=== PATIENT | female | born 1950 | race Caucasian/White ===

== ENCOUNTER 2019-07-12 11:45 | Outpatient (CLI) | payer MEDICARE, OTHER, SELFPAY ==
[2019-07-12 12:08] LABS: Basophils % 0.8 %; Eosinophils # 0.1 10^3/uL (0.0-0.8); Eosinophils % 1.5 %; Hematocrit 38.9 % (37.0-47.0); Hemoglobin 12.3 g/dL (11.5-15.3); Lymphocytes # 1.2 10^3/uL (0.8-4.8); Lymphocytes % 21.9 %; Mean Corpuscular HGB Conc 31.6 g/dL (30.0-36.0); Mean Corpuscular Hemoglobin 30.4 pg (28.0-34.0); Mean Corpuscular Volume 96.3 fL (81-99); Mean Platelet Volume 10.4 fL (7.4-10.4); Monocytes # 0.4 10^3/uL (0.2-0.9); Monocytes % 6.9 %; Neutrophils # 3.6 10^3/uL (1.8-7.7); Neutrophils % 68.7 %; Nucleated Red Blood Cells % 0 %; Platelet Count 206 10^3/cmm (130-400); Red Blood Count 4.04 10^6/uL (4.1-5.3); Red Cell Distribution Width 12.7 % (12.1-15.1); White Blood Count 5.2 10^3/uL (4.0-10.0)
[2019-07-12 12:38] LABS: Alanine Aminotransferase 23 U/L (0-33); Albumin Level 4.6 g/dL (3.5-5.2); Alkaline Phosphatase 53 IU/L (35-105); Anion Gap 13.2 (5-19); Aspartate Amino Transferase 24 U/L (0-32); Blood Urea Nitrogen 9 mg/dL (8-23); Calcium 9.9 mg/Dl (8.8-10.2); Carbon Dioxide 29 mmol/L (22-29); Chloride 104 mmol/L (98-107); Glucose 105 mg/dL (74-106); Potassium 4.2 mmol/L (3.5-5.1); Sodium 142 mmol/L (136-145); Total Bilirubin 0.6 mg/dL (0.15-1.2); Total Protein 6.6 g/dL (6.6-8.7)
[2019-07-12 12:57] LABS: 25 Hydroxy Vitamin D 40 ng/mL (30-100)
[2019-07-12] MEDS: denosumab 60 mg SDV SUBCUT (14:20)
--- NOTE | 2019-07-16 11:07 | ONC FU_ITS ---
Dr. Pemberton Patient Follow-Up Note Patient: Sarahi Martin Unit #: [id number]: 1950 Dicatated By: Hipolito Pemberton M.D.Date of Visit:Jul 12, 2019 Onc Med Follow-up/Prog Note Chief Complaint: Breast cancer. History of Present Illness: This is a 69 year-old woman with grade 1 invasive carcinoma of the right breast, stage IA (T1c, N0, M0), ER positive/AL negative and HER-2/chayo negative. This patient has been in good general health. She had presented with abnormal screening mammogram on 03/10/2018. It was BI-RADS 0 with nipple retraction and inversion of the right breast which was new compared to prior study from 2013. Also noted was architectural distortion with some tethering noted deep to the areola. Further evaluation with additional mammogram views and right breast ultrasound was BI-RADS 5, highly suggestive of malignancy. The mammographic findings were similar. The ultrasound showed a hypoechoic lesion at the 10:00 position measuring 0.7 x 0.8 x 0.5 cm. The appearance was highly suspicious for malignancy. Ultrasound directed needle biopsy of the right breast on 04/07/2018 showed nuclear grade 1 ductal carcinoma in situ with a microscopic focus of infiltrating ductal carcinoma measuring 0.2 cm. The breasts prognostic profile showed ER positive at 90% with AL negative at less than 1%. The tumor was negative for overexpression of HER-2/chayo, 1+ by IHC and amplification ratio by FISH of 1.1 with 2.1 HER-2 copies/cell. She was referred to Dr. Thompson in [place]. She had further evaluation with breast MRI on 04/28/2018. It showed findings suggestive of at least 2 areas of invasive carcinoma spanning at least 4.5 cm. Given those findings, was opted to proceed with right total mastectomy and axillary sentinel lymph node biopsy on 05/05/2018. Pathology showed a mass located centrally within the breast measuring 1.7 x 1.2 x 0.8 cm. An additional mass at approximately 2:00 measured 0.7 x 0.7 x 0.5 cm. Histology was that of invasive mammary carcinoma with ductal and lobular features, grade 1. There were 2 foci of involvement, the largest area of invasive carcinoma measuring 12 x 11 x 8 mm. The smaller lesion measured 9 x 8 x 6 mm. DCIS was present in the specimen. There was no involvement in 1 axillary sentinel lymph node. The breast prognostic profile again showed ER positive at 100% with AL negative at 0%. HER-2/chayo was negative, 1+ by IHC. The Ki-67 was favorable at 10%. I had seen her initially on 06/01/2018. Subsequent to that visit she had further evaluation with Oncotype DX. It showed a recurrence score of 10, low risk, with an estimated risk for distant recurrence at 9 years of 3% with adjuvant hormonal therapy. The absolute benefit with addition of chemotherapy was less than 1%. As such, adjuvant chemotherapy was not recommended. Adjuvant hormonal therapy with anastrozole 1 mg daily began in June 2018. At that time she also started treatment with Prolia for bone health, as her baseline dexa scan showed osteoporosis with T score -2.6 in the lumbar spine. Her medical history is otherwise significant for GERD. She has no other ongoing medical illnesses. She is a nonsmoker. Her family history is significant in that her mother of ovarian cancer. She also had been treated for colon cancer. She is seen for a followup visit. She has been feeling pretty good generally. She says her energy has been pretty low, but that she attributes to the fact that they currently in the process of moving. She still has normal activity. ECOG score is 0. Her appetite is good. She has not had fever. She does have some hot flashes, but not as much. She has no shortness of breath, cough, or chest pain. She has no GI/ complaints other than some acid reflux, which she manages adequately with Pepcid as needed. She was having bad joint pain, but that improved when she stopped taking Protonix. She does have some numbness/tingling in her feet. Medications: Anastrozole 1 Tablet (of 1 mg) Oral daily, Calcium + D3 1 Tablet (of 600-800 mg - Units) Oral b.i.d., Multivitamin Adult 1 Tablet Oral daily, Pepcid 1 Tablet (of 20 mg) Oral PRN, PreserVision AREDS 2 1 Capsule Oral daily, Vitamin D2 1 Tablet (of 73057 Units) Oral q 30 days Allergies: No Known Allergies. Review of Systems: Constitutional - Her energy is pretty good. She has normal activity. Her appetite is good and her weight is down a few pounds. No fever or chills. Her hot flashes and sweating have gotten much better. ECOG score is 0, ENMT - No sinus congestion/drainage. No mouth sores. No sore throat or difficulty swallowing, Hematologic/Lymphatic - No abnormal bruising or bleeding, Respiratory - No shortness of breath. No cough. No pleuritic pain or hemoptysis, Cardiovascular - No angina pain. No palpitations, Gastrointestinal - No nausea or vomiting. She has occasional heartburn. No diarrhea or constipation. No blood in the stool or black stools, Genitourinary (F) - No dysuria or hematuria. No urinary frequency. No urgency or incontinence, Musculoskeletal - No joint or bone pain, Integumentary - No skin complications, Neurologic - No headache or dizziness. She has numbness and tingling in her feet, Psychiatric - No anxiety or depression. No insomnia. Vital Signs: Performed on Jul 12, 2019 13:51 Height - 66.00 in Weight - 137.8 lbs (LOW) BSA - 1.71 sq.m BMI - 22.24 Temperature - 98.7 F Pulse - 73 /min Respiration - 18 /min BP - 125/64 mm(hg) O2 Sat - 100 % Pain - 0 Physical Examination: Constitutional - She looks good generally, Eyes - Sclerae nonicteric. Conjunctivae clear, ENMT - No lesions noted in the oral cavity, Hematologic/Lymphatic - No cervical, clavicular, or axillary adenopathy, Respiratory - Lungs are clear with good air movement bilaterally, Cardiovascular - Heart rhythm is regular. There is no murmur, gallop, or rub noted, Breasts - There are no lesions noted in the right chest wall . The left breast shows no mass. There is no axillary adenopathy, Abdomen - Soft. Liver and spleen are not enlarged. There is no abdominal mass or ascites noted and there is no inguinal adenopathy, Extremities - No edema, Neurologic - No focal neurologic deficits noted. Lab/Imaging: Test performed on Jul 12, 2019 11:55 Glucose 105 mg/dL Vitamin D (25-Hydroxy) 40 ng/mL BUN 9 mg/dL Creatinine 0.5 mg/dL Cr Clearance (Est) 101.83 mL/min Sodium 142 mmol/L Potassium 4.2 mmol/L Chloride 104 mmol/L CO2 29 mmol/L Calcium 9.9 mg/dL Protein, Total 6.6 g/dL Albumin 4.6 g/dL Bilirubin, Total 0.6 mg/dL Alkaline Phosphatase 53 IU/L AST (SGOT) 24 IU/L ALT (SGPT) 23 IU/L WBC 5.2 10^9/L RBC 4.04 10^12/L HGB 12.3 g/dL HCT 38.9 % MCV 96.3 fl MCH 30.4 pg MCHC 31.6 g/dL RDW 12.7 % Platelet Count 206 10^9/L MPV 10.4 fL Neutrophils (Gran) 3.6 10^9/L Lymphocytes 1.2 10^9/L Monocytes 0.4 10^9/L Eosinophils 0.1 10^9/L Basophils 0.0 10^9/L Manual Lymphocytes 21.9 % Manual Monocytes 6.9 % Manual Eosinophils 1.5 % Manual Basophils 0.8 % NRBCs 0.0 /100 WBC Impression: 1. Patient with multifocal grade 1 invasive carcinoma of the right breast, stage IA (T1c, N0, M0), ER positive/AL negative and HER-2/chayo negative. 2. She underwent ultrasound directed needle biopsy of the right breast on 04/07/2018 followed by right total mastectomy and axillary sentinel lymph node biopsy on 05/05/2018. 3. Her Oncotype DX score was 10, low risk, with estimated risk for a distance recurrence at 9 years of 3% with adjuvant hormonal therapy. 4. Postoperatively she was having neuropathic pain in the right chest wall, but that has improved with Lyrica. 5. She had evidence of osteoporosis on her baseline DEXA scan, T score -2.6 in the lumbar spine, -2.1 in the left hip, and -1.5 in the right hip. 6. She has GERD symptoms, adequately managed with medication. 7. There is a history of ovarian cancer involving a first-degree relative, which does convey some risk of hereditary breast cancer/ovarian cancer syndrome. Adjuvant hormonal therapy with anastrozole 1 mg daily began in June 2018. She also started treatment with Prolia for the osteopororsis. As of her follow-up visit in September 2018 she was tolerating the anastrozole well. I had seen her again in December, and at that point she had developed significant joint pain. I did have her stop the anastrozole. Ultimately, the pain improved when she was taken off Protonix. She had subsequently restarted the anastrozole, and she seems to be tolerating it well. Thus far there has been no evidence of recurrence of the breast cancer. Plan: She continues adjuvant hormonal therapy with anastrozole 1 mg daily. She will be given Prolia 60 mg by subcutaneous injection for the osteoporosis. She will be scheduled for a follow-up visit in 6 months. Signed By: Hipolito Pemberton M.D. <<Signature on File>>
== END 2019-07-12 11:46 | disposition home or self-care (01) ==
LOC: ONCMED 11:50
PROVIDERS: Family Provider Family Medicine; PCP Family Medicine; Visit Provider Internal Medicine Medical Oncology
DX: M81.0 Age-related osteoporosis without current pathological fracture (principal); C50.411 Malignant neoplasm of upper-outer quadrant of right female breast; K21.9 Gastro-esophageal reflux disease without esophagitis; Z17.0 Estrogen receptor positive status [ER+]; Z90.11 Acquired absence of right breast and nipple; Z79.811 Long term (current) use of aromatase inhibitors
CPT/HCPCS: 80053; 82306; 85025; 96372; 99214; J0897

== ENCOUNTER 2020-01-10 13:08 | Outpatient (CLI) | payer MEDICARE, OTHER, SELFPAY ==
[2020-01-10 14:13] LABS: Basophils % 0.7 %; Eosinophils # 0.1 10^3/uL (0.0-0.8); Eosinophils % 1.8 %; Hematocrit 37.6 % (37.0-47.0); Hemoglobin 11.4 g/dL (11.5-15.3); Lymphocytes # 1.4 10^3/uL (0.8-4.8); Lymphocytes % 32.8 %; Mean Corpuscular HGB Conc 30.3 g/dL (30.0-36.0); Mean Corpuscular Hemoglobin 29.6 pg (28.0-34.0); Mean Corpuscular Volume 97.7 fL (81-99); Mean Platelet Volume 11.1 fL (7.4-10.4); Monocytes # 0.4 10^3/uL (0.2-0.9); Monocytes % 8.9 %; Neutrophils # 2.42 10^3/uL (1.8-7.7); Neutrophils % 55.6 %; Nucleated Red Blood Cells % 0 %; Platelet Count 193 10^3/cmm (130-400); Red Blood Count 3.85 10^6/uL (4.1-5.3); Red Cell Distribution Width 12.6 % (12.1-15.1); White Blood Count 4.4 10^3/uL (4.0-10.0)
[2020-01-10 14:33] LABS: Alanine Aminotransferase 21 U/L (0-33); Albumin Level 4.5 g/dL (3.5-5.2); Alkaline Phosphatase 53 IU/L (35-105); Anion Gap 10.6 (5-19); Aspartate Amino Transferase 24 U/L (0-32); Blood Urea Nitrogen 8 mg/dL (8-23); Calcium 9.4 mg/dL (8.5-10.5); Carbon Dioxide 28 mmol/L (22-29); Chloride 106 mmol/L (98-107); Glucose 103 mg/dL (65-115); Osmolality Calculated 288 mOsm/kg (285-295); Potassium 3.6 mmol/L (3.5-5.1); Sodium 141 mmol/L (136-145); Total Bilirubin 0.4 mg/dL (0.15-1.2); Total Protein 6.5 g/dL (6.6-8.7)
[2020-01-10] MEDS: denosumab 60 mg SDV SUBCUT (15:10)
--- NOTE | 2020-01-14 15:15 | ONC FU_ITS ---
Dr. Pemberton Patient Follow-Up Note Patient: Sarahi Martin Unit #: [id number]: [id number] Dicatated By: Hipolito Pemberton M.D.Date of Visit:Jan 10, 2020 Onc Med Follow-up/Prog Note Chief Complaint: Breast cancer. History of Present Illness: This is a 69 year-old woman with grade 1 invasive carcinoma of the right breast, stage IA (T1c, N0, M0), ER positive/ND negative and HER-2/chayo negative. This patient has been in good general health. She had presented with abnormal screening mammogram on 03/10/2018. It was BI-RADS 0 with nipple retraction and inversion of the right breast which was new compared to prior study from 2013. Also noted was architectural distortion with some tethering noted deep to the areola. Further evaluation with additional mammogram views and right breast ultrasound was BI-RADS 5, highly suggestive of malignancy. The mammographic findings were similar. The ultrasound showed a hypoechoic lesion at the 10:00 position measuring 0.7 x 0.8 x 0.5 cm. The appearance was highly suspicious for malignancy. Ultrasound directed needle biopsy of the right breast on 04/07/2018 showed nuclear grade 1 ductal carcinoma in situ with a microscopic focus of infiltrating ductal carcinoma measuring 0.2 cm. The breasts prognostic profile showed ER positive at 90% with ND negative at less than 1%. The tumor was negative for overexpression of HER-2/chayo, 1+ by IHC and amplification ratio by FISH of 1.1 with 2.1 HER-2 copies/cell. She was referred to Dr. Thompson in [place]. She had further evaluation with breast MRI on 04/28/2018. It showed findings suggestive of at least 2 areas of invasive carcinoma spanning at least 4.5 cm. Given those findings, was opted to proceed with right total mastectomy and axillary sentinel lymph node biopsy on 05/05/2018. Pathology showed a mass located centrally within the breast measuring 1.7 x 1.2 x 0.8 cm. An additional mass at approximately 2:00 measured 0.7 x 0.7 x 0.5 cm. Histology was that of invasive mammary carcinoma with ductal and lobular features, grade 1. There were 2 foci of involvement, the largest area of invasive carcinoma measuring 12 x 11 x 8 mm. The smaller lesion measured 9 x 8 x 6 mm. DCIS was present in the specimen. There was no involvement in 1 axillary sentinel lymph node. The breast prognostic profile again showed ER positive at 100% with ND negative at 0%. HER-2/chayo was negative, 1+ by IHC. The Ki-67 was favorable at 10%. I had seen her initially on 06/01/2018. Subsequent to that visit she had further evaluation with Oncotype DX. It showed a recurrence score of 10, low risk, with an estimated risk for distant recurrence at 9 years of 3% with adjuvant hormonal therapy. The absolute benefit with addition of chemotherapy was less than 1%. As such, adjuvant chemotherapy was not recommended. Adjuvant hormonal therapy with anastrozole 1 mg daily began in June 2018. At that time she also started treatment with Prolia for bone health, as her baseline dexa scan showed osteoporosis with T score -2.6 in the lumbar spine. Her medical history is otherwise significant for GERD. She has no other ongoing medical illnesses. She is a nonsmoker. Her family history is significant in that her mother of ovarian cancer. She also had been treated for colon cancer. She is seen for a followup visit. She has been feeling pretty good generally, though she does complain that she does not have much energy. She still has normal activity. Her ECOG score is 0. She has good appetite, and she has gained weight. She does not have fever or night sweats. She does hot flashes off-and-on, and she also complains that her hair is getting thinner. Her dentist has told her that she has bone loss. She does not complain of shortness of breath, cough, or chest pain. She has no GI or complaints. She has been having some discomfort in her right hip, mainly the SI joint area. She has no other joint or bone pain. She has no focal neurologic symptoms. Medications: Anastrozole 1 Tablet (of 1 mg) Oral daily, Calcium + D3 1 Tablet (of 600-800 mg - Units) Oral b.i.d., Multivitamin Adult 1 Tablet Oral daily, Pepcid 1 Tablet (of 20 mg) Oral PRN, PreserVision AREDS 2 1 Capsule Oral daily, Vitamin D2 1 Tablet (of 08665 Units) Oral q 30 days Allergies: No Known Allergies. Review of Systems: Constitutional - She complains that she does not have much energy, but she still has normal activity. Appetite is good and weight is stable. No fever or night sweats. She has hot flashes off and on. She also complains that her hair is getting thinner. ECOG score is 0, ENMT - She has occasional sinus drainage. No mouth sores. No sore throat or difficulty swallowing, Hematologic/Lymphatic - No abnormal bruising or bleeding, Respiratory - No shortness of breath. No cough. No pleuritic pain or hemoptysis, Cardiovascular - No angina pain. No palpitations, Gastrointestinal - No nausea or vomiting. Her acid reflux is adequately managed with Pepcid as needed. No diarrhea or constipation. No blood in the stool or black stools, Genitourinary (F) - No dysuria or hematuria. No urinary frequency. No urgency or incontinence, Musculoskeletal - She has been having some discomfort in the right hip, mainly the SI joint area. She has no other joint or bone pain, Integumentary - No skin rash, Neurologic - No headache or dizziness. No numbness or tingling. No other focal neurologic symptoms, Psychiatric - No anxiety or depression. No insomnia. Vital Signs: Performed on Jan 10, 2020 14:35 Height - 66.00 in Weight - 143.8 lbs (HIGH) BSA - 1.74 sq.m BMI - 23.21 Temperature - 98.6 F Pulse - 65 /min Respiration - 18 /min BP - 153/76 mm(hg) (HIGH) O2 Sat - 100 % Pain - 0 Physical Examination: Constitutional - She looks good generally, Eyes - Sclerae nonicteric. Conjunctivae clear, ENMT - No lesions noted in the oral cavity, Hematologic/Lymphatic - No cervical, clavicular, or axillary adenopathy, Respiratory - Lungs are clear with good air movement bilaterally, Cardiovascular - Heart rhythm is regular. There is no murmur, gallop, or rub noted, Abdomen - Soft. Liver and spleen are not enlarged. There is no abdominal mass or ascites noted and there is no inguinal adenopathy, Extremities - No edema, Neurologic - No focal neurologic deficits noted. Lab/Imaging: Test performed on Jan 10, 2020 13:18 Sodium 141 mmol/L Potassium 3.6 mmol/L Chloride 106 mmol/L CO2 28 mmol/L Anion Gap 10.6 BUN 8 mg/dL Creatinine 0.5 mg/dL Cr Clearance (Est) 106.27 mL/min Glucose 103 mg/dL Calcium 9.4 mg/dL Protein, Total 6.5 g/dL Albumin 4.5 g/dL Globulin 2.0 g/dL Bilirubin, Total 0.4 mg/dL ALT (SGPT) 21 U/L AST (SGOT) 24 U/L Alkaline Phosphatase 53 IU/L WBC 4.4 10 3/uL RBC 3.85 10 6/uL HGB 11.4 g/dL HCT 37.6 % MCV 97.7 fL MCH 29.6 pg MCHC 30.3 g/dL RDW 12.6 % Platelet Count 193 10 3/cmm MPV 11.1 fL Neutrophils 2.42 10 3/uL Lymphocytes 1.4 10 3/uL Monocytes 0.4 10 3/uL Eosinophils 0.1 10 3/uL Basophils 0.0 10 3/uL Neutrophil % 55.6 % Lymphocyte % 32.8 % Monocyte % 8.9 % Eosinophil % 1.8 % Basophils % 0.7 % NRBC % 0 % Impression: 1. Patient with multifocal grade 1 invasive carcinoma of the right breast, stage IA (T1c, N0, M0), ER positive/ND negative and HER-2/chayo negative. 2. She underwent ultrasound directed needle biopsy of the right breast on 04/07/2018 followed by right total mastectomy and axillary sentinel lymph node biopsy on 05/05/2018. 3. Her Oncotype DX score was 10, low risk, with estimated risk for a distance recurrence at 9 years of 3% with adjuvant hormonal therapy. 4. Postoperatively she was having neuropathic pain in the right chest wall, but that has improved with Lyrica. 5. She had evidence of osteoporosis on her baseline DEXA scan, T score -2.6 in the lumbar spine, -2.1 in the left hip, and -1.5 in the right hip. 6. She has GERD symptoms, adequately managed with medication. 7. There is a history of ovarian cancer involving a first-degree relative, which does convey some risk of hereditary breast cancer/ovarian cancer syndrome. Adjuvant hormonal therapy with anastrozole 1 mg daily began in June 2018. She also started treatment with Prolia for the osteopororsis. As of her follow-up visit in September 2018 she was tolerating the anastrozole well. I had seen her again in December, and at that point she had developed significant joint pain. I did have her stop the anastrozole. Ultimately, the pain improved when she was taken off Protonix. She had subsequently restarted the anastrozole. During follow-up she has continued to have fatigue and she has had some musculoskeletal pain. She also has some hot flashes, and she complains that her hair is getting thinner. However, she feels that the side effects are tolerable. Thus far there has been no evidence of recurrence of the breast cancer. Plan: She continues adjuvant hormonal therapy with anastrozole 1 mg daily. She will be given Prolia 60 mg by subcutaneous injection for the osteoporosis. She will be scheduled for a follow-up visit in 6 months. Signed By: Hipolito Pemberton M.D. <<Signature on File>>
== END 2020-01-10 13:09 | disposition home or self-care (01) ==
LOC: ONCMED 13:12
PROVIDERS: PCP Family Medicine; Visit Provider Internal Medicine Medical Oncology
DX: M81.0 Age-related osteoporosis without current pathological fracture (principal); C50.411 Malignant neoplasm of upper-outer quadrant of right female breast; Z17.0 Estrogen receptor positive status [ER+]; Z79.811 Long term (current) use of aromatase inhibitors; K21.9 Gastro-esophageal reflux disease without esophagitis; Z80.41 Family history of malignant neoplasm of ovary; Z90.11 Acquired absence of right breast and nipple
CPT/HCPCS: 36415; 80053; 85025; 96372; 99214; J0897

== ENCOUNTER → 2020-04-22 15:47 | Outpatient (BNVA) | payer MEDICARE, OTHER, SELFPAY | PROVIDERS: PCP Family Medicine; Visit Provider Nurse Practitioner Family | DX: Z11.59 Encounter for screening for other viral diseases (principal); J06.9 Acute upper respiratory infection, unspecified | CPT/HCPCS: 87635 ==

== ENCOUNTER 2020-05-16 09:36 | Outpatient (CLI) | payer MEDICARE, OTHER, SELFPAY ==
--- NOTE | 2020-05-16 09:46 | MM_ITS ---
WS: [id number] LEFT DIGITAL MAMMOGRAPHY WITH CAD CLINICAL INFORMATION: HX OF BREAST CA;RT MASTECTOMY COMPARISON: TECHNIQUE: 3 views of the left breast were obtained. FINDINGS: The left breast is composed of heterogeneous fibroglandular density tissue, which can limit the detec tion of small underlying mass lesions. Scattered benign calcifications. No suspicious focal mass, asymmetry, calcifications, or architectural distortion. No evidence of milo gnancy. MM/MM diagnostic mammo 51006 IMPRESSION: BI-RADS: 2-Benign FOLLOW UP: 1 Year Follow-up Recommend return to annual diagnostic mammography.
== END 2020-05-16 09:37 | disposition home or self-care (01) ==
LOC: RADSHAW 09:40
PROVIDERS: PCP Family Medicine; Visit Provider Internal Medicine Medical Oncology
DX: Z85.3 Personal history of malignant neoplasm of breast (principal); Z90.11 Acquired absence of right breast and nipple
CPT/HCPCS: 77065

== ENCOUNTER 2020-07-15 12:51 | Outpatient (CLI) | payer MEDICARE, OTHER, SELFPAY ==
[2020-07-15 13:30] LABS: Basophils % 1.2 %; Eosinophils # 0.1 10^3/uL (0.0-0.8); Eosinophils % 1.5 %; Hematocrit 37.8 % (37.0-47.0); Hemoglobin 12.2 g/dL (11.5-15.3); Lymphocytes # 1.2 10^3/uL (0.8-4.8); Lymphocytes % 34.2 %; Mean Corpuscular HGB Conc 32.3 g/dL (30.0-36.0); Mean Corpuscular Hemoglobin 30.3 pg (28.0-34.0); Mean Corpuscular Volume 93.8 fL (81-99); Mean Platelet Volume 11.1 fL (7.4-10.4); Monocytes # 0.4 10^3/uL (0.2-0.9); Monocytes % 11.6 %; Neutrophils # 1.72 10^3/uL (1.8-7.7); Neutrophils % 51.2 %; Nucleated Red Blood Cells % 0 %; Platelet Count 195 10^3/cmm (130-400); Red Blood Count 4.03 10^6/uL (4.1-5.3); Red Cell Distribution Width 13.4 % (12.1-15.1); White Blood Count 3.4 10^3/uL (4.0-10.0)
[2020-07-15 14:38] LABS: 25 Hydroxy Vitamin D 43 ng/mL (30-100); Alanine Aminotransferase 26 U/L (0-33); Albumin Level 4.6 g/dL (3.5-5.2); Alkaline Phosphatase 62 IU/L (35-105); Anion Gap 10.9 (5-19); Aspartate Amino Transferase 21 U/L (0-32); Blood Urea Nitrogen 11 mg/dL (8-23); Calcium 9.1 mg/dL (8.5-10.5); Carbon Dioxide 30 mmol/L (22-29); Chloride 103 mmol/L (98-107); Globulin 2.5 g/dL (1.3-4.6); Glucose 112 mg/dL (65-115); Osmolality Calculated 290 mOsm/kg (285-295); Potassium 3.9 mmol/L (3.5-5.1); Sodium 140 mmol/L (136-145); Total Bilirubin 0.4 mg/dL (0.15-1.2); Total Protein 7.1 g/dL (6.6-8.7)
[2020-07-15] MEDS: denosumab 60 mg SDV SUBCUT (15:43)
--- NOTE | 2020-07-19 15:02 | ONC FU_ITS ---
Dr. Pemberton Patient Follow-Up Note Patient: Sarahi Martin Unit #: [id number]: 1950 Dicatated By: Hipolito Pemberton M.D.Date of Visit:Jul 15, 2020 Onc Med Follow-up/Prog Note Chief Complaint: Breast cancer. 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 This patient has been in good general health. She had presented with abnormal screening mammogram on 03/10/2018. It was BI-RADS 0 with nipple retraction and inversion of the right breast which was new compared to prior study from 2013. Also noted was architectural distortion with some tethering noted deep to the areola. Further evaluation with additional mammogram views and right breast ultrasound was BI-RADS 5, highly suggestive of malignancy. The mammographic findings were similar. The ultrasound showed a hypoechoic lesion at the 10:00 position measuring 0.7 x 0.8 x 0.5 cm. The appearance was highly suspicious for malignancy. Ultrasound directed needle biopsy of the right breast on 04/07/2018 showed nuclear grade 1 ductal carcinoma in situ with a microscopic focus of infiltrating ductal carcinoma measuring 0.2 cm. The breasts prognostic profile showed ER positive at 90% with IN negative at less than 1%. The tumor was negative for overexpression of HER-2/chayo, 1+ by IHC and amplification ratio by FISH of 1.1 with 2.1 HER-2 copies/cell. She was referred to Dr. Thompson in [place]. She had further evaluation with breast MRI on 04/28/2018. It showed findings suggestive of at least 2 areas of invasive carcinoma spanning at least 4.5 cm. Given those findings, was opted to proceed with right total mastectomy and axillary sentinel lymph node biopsy on 05/05/2018. Pathology showed a mass located centrally within the breast measuring 1.7 x 1.2 x 0.8 cm. An additional mass at approximately 2:00 measured 0.7 x 0.7 x 0.5 cm. Histology was that of invasive mammary carcinoma with ductal and lobular features, grade 1. There were 2 foci of involvement, the largest area of invasive carcinoma measuring 12 x 11 x 8 mm. The smaller lesion measured 9 x 8 x 6 mm. DCIS was present in the specimen. There was no involvement in 1 axillary sentinel lymph node. The breast prognostic profile again showed ER positive at 100% with IN negative at 0%. HER-2/chayo was negative, 1+ by IHC. The Ki-67 was favorable at 10%. I had seen her initially on 06/01/2018. Subsequent to that visit she had further evaluation with Oncotype DX. It showed a recurrence score of 10, low risk, with an estimated risk for distant recurrence at 9 years of 3% with adjuvant hormonal therapy. The absolute benefit with addition of chemotherapy was less than 1%. As such, adjuvant chemotherapy was not recommended. Adjuvant hormonal therapy with anastrozole 1 mg daily began in June 2018. At that time she also started treatment with Prolia for bone health, as her baseline dexa scan showed osteoporosis with T score -2.6 in the lumbar spine. Her medical history is otherwise significant for GERD. She has no other ongoing medical illnesses. She is a nonsmoker. Her family history is significant in that her mother of ovarian cancer. She also had been treated for colon cancer. She is seen for a followup visit. She indicates that she was diagnosed with COVID-19 virus infection in March 2020. Her energy since then has just been so-so, and she has been less active. Her ECOG score is 1. She has good appetite. She has had no fever since recovering from that illness. She does have hot flashes and sweating, but not real bad. She still has occasional cough. She does not complain of shortness of breath or chest pain. Her acid reflux is adequately managed with famotidine as needed. She has no other GI or complaints. She does have some joint pain, particularly in the left hip, but it is about the same. She has no focal neurologic symptoms. Medications: Anastrozole 1 Tablet (of 1 mg) Oral daily, Calcium + D3 1 Tablet (of 600-800 mg - Units) Oral b.i.d., Joint Health 1 Tablet Capsule Oral daily, Multivitamin Adult 1 Tablet Oral daily, Pepcid 1 Tablet (of 20 mg) Oral PRN, PreserVision AREDS 2 1 Capsule Oral daily, Vitamin D2 1 Tablet ([place] 89730 Units) Oral q 30 days Allergies: No Known Allergies. Vital Signs: Performed on Jul 15, 2020 15:05 Height - 66.00 in Weight - 142.2 lbs (LOW) BSA - 1.73 sq.m BMI - 22.95 Temperature - 97.6 F (LOW) Pulse - 66 /min Respiration - 16 /min BP - 142/70 mm(hg) (HIGH) O2 Sat - 97 % Pain - 0 Fatigue - 0 Physical Examination: Constitutional - She looks good generally, Eyes - Sclerae nonicteric. Conjunctivae clear, ENMT - No lesions noted in the oral cavity, Hematologic/Lymphatic - No cervical, clavicular, or axillary adenopathy, Respiratory - Lungs are clear with good air movement bilaterally, Cardiovascular - Heart rhythm is regular. There is no murmur, gallop, or rub noted, Abdomen - Soft. Liver and spleen are not enlarged. There is no abdominal mass or ascites noted and there is no inguinal adenopathy, Extremities - No edema, Neurologic - No focal neurologic deficits noted. Lab/Imaging: Test performed on Jul 15, 2020 13:08 Sodium 140 mmol/L Vitamin D (25-Hydroxy), Total 43 ng/mL Potassium 3.9 mmol/L Chloride 103 mmol/L CO2 30 mmol/L Anion Gap 10.9 BUN 11 mg/dL Creatinine 0.5 mg/dL Cr Clearance (Est) 103.56 mL/min Glucose 112 mg/dL Osmolality - Calculated 290 mOsm/kg Calcium 9.1 mg/dL Protein, Total 7.1 g/dL Albumin 4.6 g/dL Globulin 2.5 g/dL Bilirubin, Total 0.4 mg/dL ALT (SGPT) 26 U/L AST (SGOT) 21 U/L Alkaline Phosphatase 62 IU/L WBC 3.4 10 3/uL RBC 4.03 10 6/uL HGB 12.2 g/dL HCT 37.8 % MCV 93.8 fL MCH 30.3 pg MCHC 32.3 g/dL RDW 13.4 % Platelet Count 195 10 3/cmm MPV 11.1 fL Neutrophils 1.72 10 3/uL Lymphocytes 1.2 10 3/uL Monocytes 0.4 10 3/uL Eosinophils 0.1 10 3/uL Basophils 0.0 10 3/uL Neutrophil % 51.2 % Lymphocyte % 34.2 % Monocyte % 11.6 % Eosinophil % 1.5 % Basophils % 1.2 % NRBC % 0 % Problem List: 1. Multifocal grade 1 invasive carcinoma of the right breast, stage IA (T1c, N0, M0), ER positive/IN negative and HER-2/chayo negative. She underwent ultrasound directed needle biopsy of the right breast on 04/07/2018 followed by right total mastectomy and axillary sentinel lymph node biopsy on 05/05/2018. Her Oncotype DX score was 10, low risk, with estimated risk for a distance recurrence at 9 years of 3% with adjuvant hormonal therapy. 2. Postoperatively she was having neuropathic pain in the right chest wall, but that has improved with Lyrica. 3. She had evidence of osteoporosis on her baseline DEXA scan, T score -2.6 in the lumbar spine, -2.1 in the left hip, and -1.5 in the right hip. 4. She has GERD symptoms, adequately managed with medication. 5. She was thought to be at risk for hereditary breast cancer/ovarian cancer syndrome due to history of ovarian cancer involving a first-degree relative. Problems Addressed with this Encounter and Plan: 1. Multifocal grade 1 invasive carcinoma of the right breast, stage IA (T1c, N0, M0), ER positive/IN negative and HER-2/chayo negative. Her Oncotype DX score was 10, low risk, with estimated risk for a distance recurrence at 9 years of 3% with adjuvant hormonal therapy. She has been undergoing adjuvant hormonal therapy with anastrozole 1 mg daily following right total mastectomy and axillary sentinel lymph node biopsy in April 2018. Overall she has been doing well clinically. She has been tolerating the anastrozole with no significant adverse effects, and thus far there has been no evidence of recurrence of the breast cancer. She will continue adjuvant hormonal therapy with anastrozole 1 mg daily. She will be scheduled for a follow-up visit in 6 months. 2. Osteoporosis. She will be given Prolia 60 mg by subcutaneous injection. It will be due again in 6 months. 3. She had COVID-19 virus infection in March 2020. She has had uneventful recovery. Signed By: Hipolito Pemberton M.D. <<Signature on File>>
== END 2020-07-15 12:52 | disposition home or self-care (01) ==
LOC: ONCMED 12:56
PROVIDERS: PCP Family Medicine; Visit Provider Internal Medicine Medical Oncology
DX: C50.411 Malignant neoplasm of upper-outer quadrant of right female breast (principal); Z17.0 Estrogen receptor positive status [ER+]; M81.0 Age-related osteoporosis without current pathological fracture; Z79.811 Long term (current) use of aromatase inhibitors; Z90.11 Acquired absence of right breast and nipple; Z86.16 Personal history of COVID-19
CPT/HCPCS: 36415; 80053; 82306; 85025; 96372; 99214; J0897

== ENCOUNTER 2020-07-25 06:11 | Outpatient (CLI) | payer MEDICARE, OTHER, SELFPAY | END 2020-07-25 06:12 | disposition home or self-care (01) | LOC: ONCMED 06:13 | PROVIDERS: PCP Family Medicine; Visit Provider Internal Medicine Medical Oncology | DX: Z85.3 Personal history of malignant neoplasm of breast (principal) | CPT/HCPCS: 36415 ==

== ENCOUNTER 2020-08-06 11:55 | Outpatient (CLI) | payer MEDICARE, OTHER, SELFPAY ==
--- NOTE | 2020-08-06 12:19 | CT_ITS ---
WS: [id number] CT ABDOMEN WITH CONTRAST HISTORY: INTERMITTENT, RUQ ABDOMINAL PAIN Contiguous single phase 5 mm axial imaging performed to the abdomen. Oral contrast has been provided. Coronal and sagittal reformats are submitted. All CT scans at [facility] use at least on e of these dose optimization techniques: automated exposure control; mA and/or kV adjustment per ami ent size (includes targeted exams where dose is matched to clinical indication); or iterative reconst ruction. CONTRAST: Omnipaque 350; 95 mL IV. DLP: 664.86 mGycm COMPARISON: None available. Lower thorax: Lung bases are hyperexpanded from emphysema. No pulmonary nodule. Mild cardiomegaly. Sm all hiatal hernia. Liver: Normal. No intrahepatic dilatation. Gallbladder: Prior cholecystectomy. Pancreas: Normal. Spleen: Normal. Adrenals: Normal. Right kidney: Normal. Left kidney: Normal. Aorta: Mild atherosclerosis. No aneurysm. GI tract: Increased fluid and mild wall thickening of the proximal duodenum. No adjacent inflammation or adenopathy. No adenopathy or free fluid. Abdominal wall: No hernia. Visualized osseous structures: Unremarkable. CT/CT abdomen w con* [id number] IMPRESSION: 1. Increased fluid and mild duodenal wall thickening. Consider duodenitis and peptic ulcer disease. If symptoms do not improve endoscopy may be necessary. 2. Prior cholecystectomy. 3. No bile duct dilatation. 4. Small hiatal hernia.
[2020-08-06] MEDS: iohexol 300 mg/mL 50 mL Btl PO (13:30)
[2020-08-06] MEDS: iohexol 350 mg/mL 100 mL Btl IV (13:44)
== END 2020-08-06 11:56 | disposition home or self-care (01) ==
LOC: RADWPI 12:00
PROVIDERS: PCP Family Medicine; Visit Provider Family Medicine
DX: R10.11 Right upper quadrant pain (principal); K44.9 Diaphragmatic hernia without obstruction or gangrene; Z90.49 Acquired absence of other specified parts of digestive tract
CPT/HCPCS: 74160; Q9967

== ENCOUNTER 2021-01-15 12:40 | Outpatient (CLI) | payer MEDICARE, OTHER, SELFPAY ==
[2021-01-15 13:43] LABS: Eosinophils # 0.1 10^3/uL (0.0-0.8); Eosinophils % 2.1 %; Hematocrit 40.9 % (37.0-47.0); Hemoglobin 12.9 g/dL (11.5-15.3); Lymphocytes # 1.2 10^3/uL (0.8-4.8); Lymphocytes % 31.4 %; Mean Corpuscular HGB Conc 31.5 g/dL (30.0-36.0); Mean Corpuscular Hemoglobin 30.3 pg (28.0-34.0); Mean Platelet Volume 11.2 fL (7.4-10.4); Monocytes # 0.3 10^3/uL (0.2-0.9); Monocytes % 8.4 %; Neutrophils # 2.17 10^3/uL (1.8-7.7); Neutrophils % 56.8 %; Nucleated Red Blood Cells % 0 %; Platelet Count 184 10^3/cmm (130-400); Red Blood Count 4.26 10^6/uL (4.1-5.3); Red Cell Distribution Width 12.6 % (12.1-15.1); White Blood Count 3.8 10^3/uL (4.0-10.0)
[2021-01-15 14:05] LABS: Alanine Aminotransferase 33 U/L (0-33); Albumin Level 4.3 g/dL (3.5-5.2); Alkaline Phosphatase 51 IU/L (35-105); Anion Gap 13.7 (5-19); Aspartate Amino Transferase 26 U/L (0-32); Blood Urea Nitrogen 12 mg/dL (8-23); Carbon Dioxide 28 mmol/L (22-29); Chloride 103 mmol/L (98-107); Globulin 2.5 g/dL (1.3-4.6); Glucose 93 mg/dL (65-115); Osmolality Calculated 291 mOsm/kg (285-295); Potassium 3.7 mmol/L (3.5-5.1); Sodium 141 mmol/L (136-145); Total Bilirubin 0.6 mg/dL (0.15-1.2); Total Protein 6.8 g/dL (6.6-8.7)
[2021-01-15] MEDS: denosumab 60 mg SDV SUBCUT (14:41)
[2021-01-15 15:24] LABS: Iron 104 ug/dL (37-145); Percent Saturation 31.4 % (20-50); Thyroid Stimulating Hormone 1.57 uIU/mL (0.27-4.20); Total Iron Binding Capacity 331 mcg/dl; Unsaturated Iron Binding 227 ug/dL (112-347); Vitamin B12 522 pg/mL (232-1245)
--- NOTE | 2021-01-19 15:58 | ONC FU_ITS ---
Dr. Pemberton Patient Follow-Up Note Patient: Sarahi Martin Unit #: [id number]: 1950 Dicatated By: Hipolito Pemberton M.D.Date of Visit:Jan 15, 2021 Onc Med Follow-up/Prog Note Chief Complaint: Breast cancer. History of Present Illness: This is a 70 year-old woman with grade 1 invasive carcinoma of the right breast, stage IA (T1c, N0, M0), ER positive/MI negative and HER-2/chayo negative. This patient has been in good general health. She had presented with abnormal screening mammogram on 03/10/2018. It was BI-RADS 0 with nipple retraction and inversion of the right breast which was new compared to prior study from 2013. Also noted was architectural distortion with some tethering noted deep to the areola. Further evaluation with additional mammogram views and right breast ultrasound was BI-RADS 5, highly suggestive of malignancy. The mammographic findings were similar. The ultrasound showed a hypoechoic lesion at the 10:00 position measuring 0.7 x 0.8 x 0.5 cm. The appearance was highly suspicious for malignancy. Ultrasound directed needle biopsy of the right breast on 04/07/2018 showed nuclear grade 1 ductal carcinoma in situ with a microscopic focus of infiltrating ductal carcinoma measuring 0.2 cm. The breasts prognostic profile showed ER positive at 90% with MI negative at less than 1%. The tumor was negative for overexpression of HER-2/chayo, 1+ by IHC and amplification ratio by FISH of 1.1 with 2.1 HER-2 copies/cell. She was referred to Dr. Thompson in [place]. She had further evaluation with breast MRI on 04/28/2018. It showed findings suggestive of at least 2 areas of invasive carcinoma spanning at least 4.5 cm. Given those findings, was opted to proceed with right total mastectomy and axillary sentinel lymph node biopsy on 05/05/2018. Pathology showed a mass located centrally within the breast measuring 1.7 x 1.2 x 0.8 cm. An additional mass at approximately 2:00 measured 0.7 x 0.7 x 0.5 cm. Histology was that of invasive mammary carcinoma with ductal and lobular features, grade 1. There were 2 foci of involvement, the largest area of invasive carcinoma measuring 12 x 11 x 8 mm. The smaller lesion measured 9 x 8 x 6 mm. DCIS was present in the specimen. There was no involvement in 1 axillary sentinel lymph node. The breast prognostic profile again showed ER positive at 100% with MI negative at 0%. HER-2/chayo was negative, 1+ by IHC. The Ki-67 was favorable at 10%. I had seen her initially on 06/01/2018. Subsequent to that visit she had further evaluation with Oncotype DX. It showed a recurrence score of 10, low risk, with an estimated risk for distant recurrence at 9 years of 3% with adjuvant hormonal therapy. The absolute benefit with addition of chemotherapy was less than 1%. As such, adjuvant chemotherapy was not recommended. Adjuvant hormonal therapy with anastrozole 1 mg daily began in June 2018. At that time she also started treatment with Prolia for bone health, as her baseline dexa scan showed osteoporosis with T score -2.6 in the lumbar spine. Her medical history is otherwise significant for GERD. She has no other ongoing medical illnesses. She was diagnosed with COVID-19 virus infection in March 2020. She is a nonsmoker. Her family history is significant in that her mother of ovarian cancer. She also had been treated for colon cancer. She is seen for a followup visit. She complains that she has no energy. She is still able to do a lot of light work and a lot of physical activity, but there has been a definite change in her energy level. She has good appetite. She has not had fever. She has had some hot flashes off and on. She developed blisterlike skin lesions after getting chigger bites in September, and the same thing happened again in October or November. She had been given the [employer] COVID-19 vaccine in June and July, she wonders if that may have had something to do with it. She is going to be seeing Dr. Wayne tomorrow. She reports having occasional sinus drainage. She has no shortness of breath, cough, or chest pain. She has no GI eye or complaints. Her GERD symptoms are managed adequately taking Pepcid as needed. She has some joint pain, mainly in the hips and ankles. She says they are better now than they were. She does not complain of headache or dizziness, and she has no focal neurologic symptoms. Medications: Anastrozole 1 Tablet (of 1 mg) Oral daily, Calcium + D3 1 Tablet (of 600-800 mg - Units) Oral b.i.d., Joint Health 1 Tablet Capsule Oral daily, Multivitamin Adult 1 Tablet Oral daily, Pepcid 1 Tablet (of 20 mg) Oral PRN, PreserVision AREDS 2 1 Capsule Oral daily, Vitamin D2 1 Tablet (of [address]60 Units) Oral q 30 days Allergies: No Known Allergies. Vital Signs: Performed on Jan 15, 2021 15:40 Height - 66.00 in Weight - 134.4 lbs (LOW) BSA - 1.69 sq.m BMI - 21.69 Temperature - 97.3 F (LOW) Pulse - 63 /min Respiration - 18 /min BP - 147/80 mm(hg) (HIGH) O2 Sat - 96 % Pain - 0 Fatigue - 8 Physical Examination: Constitutional - She looks good generally, Eyes - Sclerae nonicteric. Conjunctivae clear, ENMT - No lesions noted in the oral cavity, Hematologic/Lymphatic - No cervical or clavicular adenopathy, Respiratory - Lungs are clear with good air movement bilaterally, Cardiovascular - Heart rhythm is regular. There is no murmur, gallop, or rub noted, Breasts - There are no lesions noted in the right chest wall. The left breast shows no mass. There is no axillary adenopathy, Abdomen - Soft. Liver and spleen are not enlarged. There is no abdominal mass or ascites noted and there is no inguinal adenopathy, Extremities - No edema, Neurologic - No focal neurologic deficits noted. Lab/Imaging: Test performed on Jan 15, 2021 12:54 Iron 104 mcg/dL Sodium 141 mmol/L TSH 1.57 uIU/mL Vitamin B12 522 pg/mL Iron Binding Capacity (TIBC) 331 mcg/dl Potassium 3.7 mmol/L % Iron Saturation 31.4 % Chloride 103 mmol/L CO2 28 mmol/L UIBC 227 mcg/dL Anion Gap 13.7 BUN 12 mg/dL Creatinine 0.5 mg/dL Cr Clearance (Est) 97.88 mL/min Glucose 93 mg/dL Osmolality - Calculated 291 mOsm/kg Calcium 9.0 mg/dL Protein, Total 6.8 g/dL Albumin 4.3 g/dL Globulin 2.5 g/dL Bilirubin, Total 0.6 mg/dL ALT (SGPT) 33 U/L AST (SGOT) 26 U/L Alkaline Phosphatase 51 IU/L WBC 3.8 10 3/uL RBC 4.26 10 6/uL HGB 12.9 g/dL HCT 40.9 % MCV 96.0 fL MCH 30.3 pg MCHC 31.5 g/dL RDW 12.6 % Platelet Count 184 10 3/cmm MPV 11.2 fL Neutrophils 2.17 10 3/uL Lymphocytes 1.2 10 3/uL Monocytes 0.3 10 3/uL Eosinophils 0.1 10 3/uL Basophils 0.0 10 3/uL Neutrophil % 56.8 % Lymphocyte % 31.4 % Monocyte % 8.4 % Eosinophil % 2.1 % Basophils % 1.0 % NRBC % 0 % Problem List: 1. Multifocal grade 1 invasive carcinoma of the right breast, stage IA (T1c, N0, M0), ER positive/MI negative and HER-2/chayo negative. She underwent ultrasound directed needle biopsy of the right breast on 04/07/2018 followed by right total mastectomy and axillary sentinel lymph node biopsy on 05/05/2018. Her Oncotype DX score was 10, low risk, with estimated risk for a distance recurrence at 9 years of 3% with adjuvant hormonal therapy. 2. Postoperatively she was having neuropathic pain in the right chest wall, but that has improved with Lyrica. 3. She had evidence of osteoporosis on her baseline DEXA scan, T score -2.6 in the lumbar spine, -2.1 in the left hip, and -1.5 in the right hip. 4. She has GERD symptoms, adequately managed with medication. 5. She was thought to be at risk for hereditary breast cancer/ovarian cancer syndrome due to history of ovarian cancer involving a first-degree relative. Problems Addressed with this Encounter and Plan: 1. Multifocal grade 1 invasive carcinoma of the right breast, stage IA (T1c, N0, M0), ER positive/MI negative and HER-2/chayo negative. Her Oncotype DX score was 10, low risk, with estimated risk for a distance recurrence at 9 years of 3% with adjuvant hormonal therapy. She has been undergoing adjuvant hormonal therapy with anastrozole 1 mg daily following right total mastectomy and axillary sentinel lymph node biopsy in April 2018. Since her last visit she has continued to have some joint pain, but it is tolerable. The most significant change is that she has had a definite decline in her energy. I am going to check serum iron studies, B12 level, and a TSH level, but I think this is most likely treatment related. As such, I am going to have her stop the anastrozole for 1 month. I will reassess at that point and we will decide whether to continue with the anastrozole or consider changing to a different medication. I am going to tentatively plan a follow-up visit in 6 months. 2. She has osteoporosis. She will be given Prolia 60 mg by subcutaneous injection. Signed By: Hipolito Pemberton M.D. <<Signature on File>>
== END 2021-01-15 12:41 | disposition home or self-care (01) ==
LOC: ONCMED 12:43
PROVIDERS: PCP Family Medicine; Visit Provider Internal Medicine Medical Oncology
DX: C50.811 Malignant neoplasm of overlapping sites of right female breast (principal); Z17.0 Estrogen receptor positive status [ER+]; Z90.11 Acquired absence of right breast and nipple; M81.0 Age-related osteoporosis without current pathological fracture; K21.9 Gastro-esophageal reflux disease without esophagitis; Z79.811 Long term (current) use of aromatase inhibitors; Z79.899 Other long term (current) drug therapy; Z80.41 Family history of malignant neoplasm of ovary
CPT/HCPCS: 80053; 82607; 83540; 83550; 84443; 85025; 96372; 99214; J0897

== ENCOUNTER 2021-06-03 09:14 | Outpatient (CLI) | payer MEDICARE, OTHER, SELFPAY ==
--- NOTE | 2021-06-03 09:18 | MM_ITS ---
WS: [id number] LEFT DIGITAL MAMMOGRAPHY WITH CAD CLINICAL INFORMATION: HX OF BREAST CA;RT MASTECTOMY COMPARISON: May 16, 2020 TECHNIQUE: 3 views of the left breast were obtained. FINDINGS: Scattered fibroglandular densities of the left breast. A few tiny stable punctate calcifications. No suspicious focal mass, asymmetry, calcifications, or architectural distortion. No evidence of milo gnancy. MM/[place] [id number] IMPRESSION: BI-RADS: 2-Benign FOLLOW UP: 1 Year Follow-up Recommend return to annual diagnostic mammography.
== END 2021-06-03 09:15 | disposition home or self-care (01) ==
LOC: RADSHAW 09:17
PROVIDERS: PCP Family Medicine; Visit Provider Family Medicine
DX: Z85.3 Personal history of malignant neoplasm of breast (principal); Z90.11 Acquired absence of right breast and nipple
CPT/HCPCS: 77065

== ENCOUNTER 2021-07-16 11:46 | Outpatient (CLI) | payer MEDICARE, OTHER, SELFPAY ==
[2021-07-16 12:25] LABS: Basophils % 0.6 %; Eosinophils # 0.1 10^3/uL (0.0-0.8); Eosinophils % 2.1 %; Hematocrit 38.5 % (37.0-47.0); Hemoglobin 12.2 g/dL (11.5-15.3); Lymphocytes # 1.5 10^3/uL (0.8-4.8); Lymphocytes % 32.5 %; Mean Corpuscular HGB Conc 31.7 g/dL (30.0-36.0); Mean Corpuscular Hemoglobin 30.3 pg (28.0-34.0); Mean Corpuscular Volume 95.8 fl (81-99); Mean Platelet Volume 10.9 fL (7.4-10.4); Monocytes # 0.4 10^3/uL (0.2-0.9); Neutrophils % 55.6 %; Nucleated Red Blood Cells % 0 %; Platelet Count 200 10^3/cmm (130-400); Red Blood Count 4.02 10^6/uL (4.1-5.3); Red Cell Distribution Width 12.9 % (12.1-15.1); White Blood Count 4.7 10^3/uL (4.0-10.0)
[2021-07-16 12:41] LABS: Alanine Aminotransferase 64 U/L (0-33); Albumin Level 4.4 g/dL (3.5-5.2); Alkaline Phosphatase 68 IU/L (35-105); Blood Urea Nitrogen 12 mg/dL (8-23); Calcium 9.5 mg/dL (8.5-10.5); Carbon Dioxide 30 mmol/L (22-29); Chloride 103 mmol/L (98-107); Globulin 2.1 g/dL (1.3-4.6); Glucose 92 mg/dL (65-115); Osmolality Calculated 291 mOsm/kg (285-295); Sodium 141 mmol/L (136-145); Total Bilirubin 0.4 mg/dL (0.15-1.2); Total Protein 6.5 g/dL (6.6-8.7)
[2021-07-16 12:42] LABS: Anion Gap 13.1 (5-19); Aspartate Amino Transferase 44 U/L (0-32); Potassium 5.1 mmol/L (3.5-5.1)
[2021-07-16] MEDS: denosumab 60 mg SDV SUBCUT (14:35)
--- NOTE | 2021-07-17 08:20 | ONC FU_ITS ---
Dr. Pemberton Patient Follow-Up Note Patient: Sarahi Martin Unit #: [id number]: 1950 Dicatated By: Hipolito Pemberton M.D.Date of Visit:Jul 16, 2021 Onc Med Follow-up/Prog Note Chief Complaint: Breast cancer. 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 This patient has been in good general health. She had presented with abnormal screening mammogram on 03/10/2018. It was BI-RADS 0 with nipple retraction and inversion of the right breast which was new compared to prior study from 2013. Also noted was architectural distortion with some tethering noted deep to the areola. Further evaluation with additional mammogram views and right breast ultrasound was BI-RADS 5, highly suggestive of malignancy. The mammographic findings were similar. The ultrasound showed a hypoechoic lesion at the 10:00 position measuring 0.7 x 0.8 x 0.5 cm. The appearance was highly suspicious for malignancy. Ultrasound directed needle biopsy of the right breast on 04/07/2018 showed nuclear grade 1 ductal carcinoma in situ with a microscopic focus of infiltrating ductal carcinoma measuring 0.2 cm. The breasts prognostic profile showed ER positive at 90% with DE negative at less than 1%. The tumor was negative for overexpression of HER-2/chayo, 1+ by IHC and amplification ratio by FISH of 1.1 with 2.1 HER-2 copies/cell. She was referred to Dr. Thompson in [place]. She had further evaluation with breast MRI on 04/28/2018. It showed findings suggestive of at least 2 areas of invasive carcinoma spanning at least 4.5 cm. Given those findings, was opted to proceed with right total mastectomy and axillary sentinel lymph node biopsy on 05/05/2018. Pathology showed a mass located centrally within the breast measuring 1.7 x 1.2 x 0.8 cm. An additional mass at approximately 2:00 measured 0.7 x 0.7 x 0.5 cm. Histology was that of invasive mammary carcinoma with ductal and lobular features, grade 1. There were 2 foci of involvement, the largest area of invasive carcinoma measuring 12 x 11 x 8 mm. The smaller lesion measured 9 x 8 x 6 mm. DCIS was present in the specimen. There was no involvement in 1 axillary sentinel lymph node. The breast prognostic profile again showed ER positive at 100% with DE negative at 0%. HER-2/chayo was negative, 1+ by IHC. The Ki-67 was favorable at 10%. I had seen her initially on 06/01/2018. Subsequent to that visit she had further evaluation with Oncotype DX. It showed a recurrence score of 10, low risk, with an estimated risk for distant recurrence at 9 years of 3% with adjuvant hormonal therapy. The absolute benefit with addition of chemotherapy was less than 1%. As such, adjuvant chemotherapy was not recommended. Adjuvant hormonal therapy with anastrozole 1 mg daily began in June 2018. At that time she also started treatment with Prolia for bone health, as her baseline dexa scan showed osteoporosis with T score -2.6 in the lumbar spine. Her medical history is otherwise significant for GERD. She has no other ongoing medical illnesses. She was diagnosed with COVID-19 virus infection in March 2020. She is a nonsmoker. Her family history is significant in that her mother of ovarian cancer. She also had been treated for colon cancer. INTERIM HISTORY: As of her follow-up visit in December 2020 she was complaining of increased fatigue and her joint pain had worsened somewhat. I had suspected that the symptoms were treatment related, and I did have her stop the anastrozole for 30 days. However, she then restarted the medication, as her symptoms had not improved. She is seen for a followup visit. She has been feeling good generally. She still has some fatigue, but her energy has stayed about the same. She is able to do light work. ECOG score is 1. She has good appetite. She has not had fever. She does have sweating at times. She occasionally has sinus drainage. She has not had sore mouth or throat. She does not complain of cough, and she has not been having shortness of breath or chest pain. She has no GI or complaints. She has some joint pain, but overall that has improved. She does not complain of headache or dizziness, and she has no focal neurologic symptoms. Medications: Anastrozole 1 Tablet (of 1 mg) Oral daily, Calcium + D3 1 Tablet (of 600-800 mg - Units) Oral b.i.d., Joint Health 1 Tablet Capsule Oral daily, Multivitamin Adult 1 Tablet Oral daily, Pepcid 1 Tablet (of 20 mg) Oral PRN, PreserVision AREDS 2 1 Capsule Oral daily, Vitamin D2 1 Tablet (of 98373 Units) Oral q 30 days Allergies: No Known Allergies. Vital Signs: Performed on Jul 16, 2021 14:12 Height - 66.00 in Weight - 141.2 lbs (HIGH) BSA - 1.73 sq.m BMI - 22.79 Temperature - 96.7 F (LOW) Pulse - 84 /min Respiration - 16 /min BP - 170/71 mm(hg) (HIGH) O2 Sat - 99 % Pain - 0 Fatigue - 4 Physical Examination: Constitutional - She looks good generally, Eyes - Sclerae nonicteric. Conjunctivae clear, ENMT - No lesions noted in the oral cavity, Hematologic/Lymphatic - No cervical, clavicular, or axillary adenopathy, Respiratory - Lungs are clear with good air movement bilaterally, Cardiovascular - Heart rhythm is regular. There is no murmur, gallop, or rub noted, Abdomen - Soft. Liver and spleen are not enlarged. There is no abdominal mass or ascites noted and there is no inguinal adenopathy, Extremities - No edema, Neurologic - No focal neurologic deficits noted. Lab/Imaging: Test performed on Jul 16, 2021 12:12 Sodium 141 mmol/L Potassium 5.1 mmol/L Chloride 103 mmol/L CO2 30 mmol/L Anion Gap 13.1 BUN 12 mg/dL Creatinine 0.4 mg/dL Cr Clearance (Est) 126.65 mL/min Glucose 92 mg/dL Osmolality - Calculated 291 mOsm/kg Calcium 9.5 mg/dL Protein, Total 6.5 g/dL Albumin 4.4 g/dL Globulin 2.1 g/dL Bilirubin, Total 0.4 mg/dL ALT (SGPT) 64 U/L AST (SGOT) 44 U/L Alkaline Phosphatase 68 IU/L WBC 4.7 10 3/uL RBC 4.02 10 6/uL HGB 12.2 g/dL HCT 38.5 % MCV 95.8 fl MCH 30.3 pg MCHC 31.7 g/dL RDW 12.9 % Platelet Count 200 10 3/cmm MPV 10.9 fL Neutrophils 2.60 10 3/uL Lymphocytes 1.5 10 3/uL Monocytes 0.4 10 3/uL Eosinophils 0.1 10 3/uL Basophils 0.0 10 3/uL Neutrophil % 55.6 % Lymphocyte % 32.5 % Monocyte % 9.0 % Eosinophil % 2.1 % Basophils % 0.6 % NRBC % 0 % Problem List: 1. 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 2. Osteoporosis. 3. GERD. 4. She was thought to be at risk for hereditary breast cancer/ovarian cancer syndrome due to history of ovarian cancer involving a first-degree relative. Her genetic screening was negative. Problems Addressed with this Encounter and Plan: 1. 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 She underwent ultrasound directed needle biopsy of the right breast on 04/07/2018 followed by right total mastectomy and axillary sentinel lymph node biopsy on 05/05/2018. Her Oncotype DX score was low risk with recurrence score 10. Adjuvant hormonal therapy with anastrozole 1 mg daily began in June 2018. During follow-up she has been doing well clinically. She has been tolerating the anastrozole with acceptable toxicity. She has had some fatigue and some musculoskeletal pain, but those symptoms did not improve with temporarily stopping treatment. She has now completed 3 years of treatment with no evidence of recurrence of the breast cancer. She continues anastrozole 1 mg daily. She will be scheduled for a follow-up visit in 6 months. 2. She has osteoporosis with baseline DEXA scan in June 2018 showing T score -2.6 in the lumbar spine, -2.1 in the left hip, and -1.5 in the right hip. She has been on treatment with Prolia. She will be given Prolia 60 mg by subcutaneous injection today. Signed By: Hipolito Pemberton M.D. <<Signature on File>>
== END 2021-07-16 11:47 | disposition home or self-care (01) ==
LOC: ONCMED 11:50
PROVIDERS: PCP Family Medicine; Visit Provider Internal Medicine Medical Oncology
DX: Z51.11 Encounter for antineoplastic chemotherapy (principal); C50.911 Malignant neoplasm of unspecified site of right female breast; Z17.0 Estrogen receptor positive status [ER+]; M81.0 Age-related osteoporosis without current pathological fracture; K21.9 Gastro-esophageal reflux disease without esophagitis; Z80.3 Family history of malignant neoplasm of breast; Z80.41 Family history of malignant neoplasm of ovary; Z79.811 Long term (current) use of aromatase inhibitors
CPT/HCPCS: 36415; 80053; 85025; 96372; 99215; J0897

== ENCOUNTER 2022-04-21 12:51 | Oncology outpatient (recurring) (ONCR) | payer MEDICARE, OTHER, SELFPAY ==
[2022-04-21 13:14] LABS: Basophils % 0.8 %; Eosinophils # 0.1 10^3/uL (0.0-0.8); Eosinophils % 2.8 %; Hemoglobin 11.9 g/dL (11.5-15.3); Lymphocytes # 1.2 10^3/uL (0.8-4.8); Lymphocytes % 25.2 %; Mean Corpuscular HGB Conc 32.2 g/dL (30.0-36.0); Mean Corpuscular Hemoglobin 30.8 pg (28.0-34.0); Mean Corpuscular Volume 95.9 fl (81-99); Mean Platelet Volume 10.6 fL (7.4-10.4); Monocytes # 0.5 10^3/uL (0.2-0.9); Neutrophils # 2.99 10^3/uL (1.8-7.7); Neutrophils % 60.8 %; Nucleated Red Blood Cells % 0 %; Platelet Count 214 10^3/cmm (130-400); Red Blood Count 3.86 10^6/uL (4.1-5.3); Red Cell Distribution Width 12.8 % (12.1-15.1); White Blood Count 4.9 10^3/uL (4.0-10.0)
[2022-04-21 13:45] LABS: Alanine Aminotransferase 27 U/L (0-33); Albumin Level 4.4 g/dL (3.5-5.2); Alkaline Phosphatase 96 U/L (35-105); Anion Gap 13.2 (5-19); Aspartate Amino Transferase 21 U/L (0-32); Blood Urea Nitrogen 17 mg/dL (8-23); Calcium 9.6 mg/dL (8.5-10.5); Carbon Dioxide 31 mmol/L (22-29); Chloride 101 mmol/L (98-107); Globulin 2.6 g/dL (1.3-4.6); Glucose 122 mg/dL (65-115); Osmolality Calculated 295 mOsm/kg (285-295); Potassium 4.2 mmol/L (3.5-5.1); Sodium 141 mmol/L (136-145); Total Bilirubin 0.4 mg/dL (0.15-1.2)
[2022-04-21 14:00] LABS: 25 Hydroxy Vitamin D 53 ng/mL (30-100)
[2022-04-21] MEDS: denosumab 60 mg SDV SUBCUT (14:33)
[2022-04-21 17:21] LABS: Thyroid Stimulating Hormone 1.85 uIU/mL (0.27-4.20)
== END 2022-04-27 23:59 | disposition home or self-care (01) ==
LOC: ONCMED 12:52
PROVIDERS: PCP Family Medicine; Visit Provider Internal Medicine Medical Oncology
DX: C50.411 Malignant neoplasm of upper-outer quadrant of right female breast (principal); M81.0 Age-related osteoporosis without current pathological fracture; R53.83 Other fatigue; Z79.811 Long term (current) use of aromatase inhibitors; Z79.899 Other long term (current) drug therapy; Z17.0 Estrogen receptor positive status [ER+]
CPT/HCPCS: 80053; 82306; 84443; 85025; 96372; 99214; J0897

== ENCOUNTER 2022-06-09 09:44 | Outpatient (CLI) | payer MEDICARE, OTHER, SELFPAY ==
--- NOTE | 2022-06-09 09:57 | MM_ITS ---
WS: [id number] DIAGNOSTIC LEFT DIGITAL TOMOSYNTHESIS MAMMOGRAPHY WITH CAD. HISTORY: HX OF BREAST CA; RT mastectomy. COMPARISON: 06/03/2021, 05/16/2020 and 05/15/2019 Technique: CC, MLO and ML views. Breast composition: The breasts are heterogeneously dense, which may obscure small masses. No suspic ious mass or calcification. No nipple retraction. MM/[place] [id number] IMPRESSION: BI-RADS: 2-Benign FOLLOW UP: 1 Year Follow-up
== END 2022-06-09 09:45 | disposition home or self-care (01) ==
LOC: RAD 09:48
PROVIDERS: PCP Family Medicine; Visit Provider Internal Medicine Medical Oncology
DX: Z85.3 Personal history of malignant neoplasm of breast (principal); Z90.11 Acquired absence of right breast and nipple
CPT/HCPCS: 77061; G0279

== ENCOUNTER 2022-10-20 13:21 | Oncology outpatient (recurring) (ONCR) | payer MEDICARE, OTHER, SELFPAY ==
[2022-10-20] MEDS: denosumab 60 mg SDV SUBCUT (13:56)
== END 2022-10-25 23:59 | disposition home or self-care (01) ==
PROVIDERS: PCP Family Medicine; Visit Provider Internal Medicine Medical Oncology
DX: C50.411 Malignant neoplasm of upper-outer quadrant of right female breast (principal); M81.0 Age-related osteoporosis without current pathological fracture; R53.83 Other fatigue; Z79.811 Long term (current) use of aromatase inhibitors; Z79.899 Other long term (current) drug therapy; Z17.0 Estrogen receptor positive status [ER+]
CPT/HCPCS: 96372; 99214; J0897

== ENCOUNTER → 2023-02-25 13:02 | Outpatient (BNVA) | payer MEDICARE, OTHER, SELFPAY | PROVIDERS: PCP Family Medicine; Visit Provider Nurse Practitioner Family | DX: L57.0 Actinic keratosis (principal); L81.4 Other melanin hyperpigmentation; L82.1 Other seborrheic keratosis; D18.01 Hemangioma of skin and subcutaneous tissue; Z85.828 Personal history of other malignant neoplasm of skin | CPT/HCPCS: 17000; 17003; 99214 ==

== ENCOUNTER 2023-06-14 07:34 | Outpatient (CLI) | payer MEDICARE, OTHER, SELFPAY ==
--- NOTE | 2023-06-14 07:42 | MM_ITS ---
WS: [id number] DIAGNOSTIC LEFT DIGITAL TOMOSYNTHESIS MAMMOGRAPHY WITH CAD. HISTORY: ANNUAL - HX BR CA;RT MST COMPARISON: 06/09/2022 and 06/03/2021 Technique: CC, MLO and ML views. Breast composition: There are scattered areas of fibroglandular density. No masses or calcifications. No distortion. IMPRESSION: MM/[place] [id number] BI-RADS: 1-Negative FOLLOW UP: 1 Year Follow-up
== END 2023-06-14 07:35 | disposition home or self-care (01) ==
LOC: RAD 07:35
PROVIDERS: PCP Family Medicine; Visit Provider Internal Medicine Medical Oncology
DX: Z85.3 Personal history of malignant neoplasm of breast (principal); Z90.11 Acquired absence of right breast and nipple; L57.0 Actinic keratosis; Z85.828 Personal history of other malignant neoplasm of skin; L82.1 Other seborrheic keratosis; L72.0 Epidermal cyst; L57.8 Other skin changes due to chronic exposure to nonionizing radiation; L81.4 Other melanin hyperpigmentation
CPT/HCPCS: 17000; 77061; 99213; G0279

== ENCOUNTER 2023-06-16 13:26 | Oncology outpatient (recurring) (ONCR) | payer MEDICARE, OTHER, SELFPAY | END 2023-06-27 23:59 | disposition home or self-care (01) | LOC: ONCMED 13:26 | PROVIDERS: PCP Family Medicine; Visit Provider Internal Medicine Medical Oncology | DX: C50.411 Malignant neoplasm of upper-outer quadrant of right female breast (principal); Z17.0 Estrogen receptor positive status [ER+]; Z79.899 Other long term (current) drug therapy | CPT/HCPCS: 99214 ==

== ENCOUNTER → 2023-12-01 15:49 | Outpatient (BNVA) | payer MEDICARE, OTHER, SELFPAY | PROVIDERS: PCP Family Medicine; Visit Provider Nurse Practitioner Family | DX: B35.1 Tinea unguium (principal); L81.4 Other melanin hyperpigmentation; D22.5 Melanocytic nevi of trunk; Z85.828 Personal history of other malignant neoplasm of skin | CPT/HCPCS: 99213 ==

== ENCOUNTER → 2024-02-07 09:03 | Outpatient (BNVA) | payer MEDICARE, SELFPAY | PROVIDERS: PCP Family Medicine; Visit Provider Podiatrist Foot & Ankle Surgery | DX: L60.8 Other nail disorders (principal); L60.3 Nail dystrophy | CPT/HCPCS: 99203 ==

== ENCOUNTER → 2024-03-02 10:23 | Outpatient (BNVA) | payer MEDICARE, SELFPAY | PROVIDERS: PCP Family Medicine; Visit Provider Podiatrist Foot & Ankle Surgery | DX: L60.3 Nail dystrophy (principal) | CPT/HCPCS: 36415; 80053 ==

== ENCOUNTER → 2024-05-17 08:25 | Outpatient (BNVA) | payer MEDICARE, SELFPAY | PROVIDERS: PCP Family Medicine; Visit Provider Nurse Practitioner Family | DX: L57.0 Actinic keratosis (principal); L81.4 Other melanin hyperpigmentation; Z85.828 Personal history of other malignant neoplasm of skin | CPT/HCPCS: 99213 ==

== ENCOUNTER 2024-08-22 10:17 | Outpatient (CLI) | payer MEDICARE, SELFPAY ==
--- NOTE | 2024-08-22 10:23 | MM_ITS ---
WS: [id number] DIAGNOSTIC LEFT DIGITAL TOMOSYNTHESIS MAMMOGRAPHY WITH CAD. HISTORY: HX OF BREAST CANCER COMPARISON: 06/14/2023, 06/09/2022 and 06/03/2021 Technique: CC, MLO and ML views. Breast composition: There are scattered areas of fibroglandular density. Stable appearance of the fibroglandular pattern. No suspicious masses or distortion. No calcifications. MM/MM diag LT tomosynthesis [id number] IMPRESSION: BI-RADS: 2 - Benign. FOLLOW UP: 1 Year Follow-up
== END 2024-08-22 10:18 | disposition home or self-care (01) ==
LOC: RAD 10:19
PROVIDERS: PCP Family Medicine; Visit Provider Family Medicine
DX: Z85.3 Personal history of malignant neoplasm of breast (principal); R92.322 Mammographic fibroglandular density, left breast
CPT/HCPCS: 77061; G0279

== ENCOUNTER → 2024-12-28 13:57 | Outpatient (BNVA) | payer MEDICARE, SELFPAY | PROVIDERS: PCP Family Medicine; Visit Provider Nurse Practitioner Family | DX: L57.0 Actinic keratosis (principal); L81.4 Other melanin hyperpigmentation; L57.8 Other skin changes due to chronic exposure to nonionizing radiation; Z08 Encounter for follow-up examination after completed treatment for malignant neoplasm; Z85.828 Personal history of other malignant neoplasm of skin | CPT/HCPCS: 99213 ==

== ENCOUNTER 2025-01-10 12:52 | Outpatient (CLI) | payer MEDICARE, SELFPAY ==
--- NOTE | 2025-01-10 13:01 | XR_ITS ---
WS: [id number] DEXA (DUAL ENERGY X-RAY ABSORPTIOMETRY) Bone mineral density was performed using a [email or web address] machine. HISTORY: POSTMENOPAUSAL COMPARISON: 06/29/2018 Lumbar spine BMD (L1-L4): 0.961 g/cm2 T score: -1.8 Z score: 0.0 Total hip BMD: Left: 0.744 g/cm2. T score: -2.1 Z score: -0.2 Right: 0.830 g/cm2. T score: -1.4 Z score: 0.5 10 year probability of a major osteoporotic fracture is 14.0%. Compared to the prior study from 06/29/2018. Lumbar spine bone mineral density has increased by 11.4%. Bilateral hips bone mineral density has increased by 0.9%. XR/XR DEXA axial skeleton* [id number] IMPRESSION: OSTEOPENIA based upon the WHO classification for females. Significant increase in bone mineral density within the lumbar spine since the prior study. No significant change within the hips.
== END 2025-01-10 12:53 | disposition home or self-care (01) ==
PROVIDERS: PCP Family Medicine; Visit Provider Family Medicine
DX: Z13.820 Encounter for screening for osteoporosis (principal); M85.80 Other specified disorders of bone density and structure, unspecified site; Z78.0 Asymptomatic menopausal state
CPT/HCPCS: 77080